=== PATIENT | male | born 2000 | race Caucasian/White ===

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

== ENCOUNTER 2023-01-20 19:44 | Emergency (ER) | payer BC, OTHER ==
[~2023-01-20] VITALS: Ht 195.6 cm; Wt 66.4 kg
[2023-01-21] MEDS ORDERED: ibuprofen tablet 400 MG TABLET PO ONE (00:40)
[2023-01-21 00:50] VITALS: BP 139/88
== END 2023-01-21 00:51 | disposition home or self-care (01) ==
LOC: ER 19:46
DX: S20.212A Contusion of left front wall of thorax, initial encounter (principal); Z88.1 Allergy status to other antibiotic agents; X58.XXXA Exposure to other specified factors, initial encounter; Y93.89 Activity, other specified; Y92.89 Other specified places as the place of occurrence of the external cause; Y99.8 Other external cause status
CPT/HCPCS: 71100; 99283